=== PATIENT | female | born 1940 | race Caucasian/White ===

== ENCOUNTER 2017-07-18 08:30 | Outpatient (CLI) | payer MEDICARE ==
--- NOTE | 2017-07-18 10:41 | CT ---
CT OF THE CHEST WITH CONTRAST: Comparison: 07-30-15 History: Pulmonary nodules. Technique: Multiple contiguous axial images were obtained in a CT of the chest with contrast. Coronal reformats were performed. FINDINGS: Scarring is again seen in the lingula. There is an interstitial lymph node measuring less than 4 mm i n size along the major fissure on image 25 of 62. There are stable nodules in both lower lobes which are 4 mm or less in size. These are seen on images 44 and 49. No new pulmonary nodules are seen. No pneumothorax or pleural effusion are seen. The heart is normal in size without focal cardiac abnormality. No hilar or mediastinal lymphadenopath y are seen. Degenerative changes are seen in the spine. Patient is status post left mastectomy. There are surgica l clips overlying the right lobe of the liver. The other visualized subdiaphragmatic structures are u nremarkable. IMPRESSION: 1. Stable less than 4 mm pulmonary nodules. These have very low likelihood of becoming malignancy. POS: [place]
[2017-07-18] MEDS ORDERED: Iopamidol 370 76% 100 ML VIAL ONE (13:34)
== END 2017-07-18 08:31 | disposition home or self-care (01) ==
LOC: CT 08:30
PROVIDERS: ATTEND Family Medicine
DX: R91.8 Other nonspecific abnormal finding of lung field (principal)
CPT/HCPCS: 71260

== ENCOUNTER 2017-07-25 20:30 | Outpatient (CLI) | payer MEDICARE | END 2017-07-25 20:31 | disposition home or self-care (01) | LOC: SLEEPLAB 20:30 | PROVIDERS: ATTEND Family Medicine | DX: G47.33 Obstructive sleep apnea (adult) (pediatric) (principal); I10 Essential (primary) hypertension; K21.9 Gastro-esophageal reflux disease without esophagitis | CPT/HCPCS: 95810 ==